=== PATIENT | female | born 1960 | race Caucasian/White ===

== ENCOUNTER → 2020-12-17 | Outpatient (CLI) | payer BC, OTHER ==
[~2020-12-17] MED LIST: CELEXA20 MG PO; OMEPRAZOLE40 MG PO; OXYBUTYNIN CHLOR5 MG PO; SINGULAIR10 MG PO; SKELAXIN800 MG PO; VITAMIN D5000 UNIT PO
[2020-12-17 13:19] LABS: HEMOGLOBIN 13.4 gm/dl (12.3-15.3); RED BLOOD COUNT 4.47 M/UL (4.00-5.10); WHITE BLOOD COUNT 7.7 K/UL (4.5-11.0)
[2020-12-17 19:36] LABS: BUN/CREATININE RATIO 22 (0-10)
== END ==
LOC: LAB 12:34
PROVIDERS: Internal Medicine
DX: E83.52 Hypercalcemia (principal); R73.01 Impaired fasting glucose; R53.83 Other fatigue; E55.9 Vitamin D deficiency, unspecified; K21.9 Gastro-esophageal reflux disease without esophagitis; Z51.81 Encounter for therapeutic drug level monitoring; Z79.899 Other long term (current) drug therapy
CPT/HCPCS: 36415; 80053; 80061; 82330; 82607; 82746; 83036; 83735; 83970; 84436; 84439; 84443; 85025

== ENCOUNTER → 2021-09-22 | Outpatient (CLI) | payer BC ==
[2021-09-22 12:41] LABS: HEMOGLOBIN 13.1 gm/dl (12.3-15.3); RED BLOOD COUNT 4.54 M/UL (4.00-5.10); WHITE BLOOD COUNT 6.6 K/UL (4.5-11.0)
[2021-09-22 13:13] LABS: BUN/CREATININE RATIO 10 (0-10)
== END ==
LOC: LAB 11:39
PROVIDERS: Internal Medicine
DX: R53.83 Other fatigue (principal); E78.5 Hyperlipidemia, unspecified; R73.03 Prediabetes; Z51.81 Encounter for therapeutic drug level monitoring; Z79.899 Other long term (current) drug therapy
CPT/HCPCS: 36415; 80053; 80061; 82330; 82607; 82746; 83036; 83970; 84439; 84443; 85025

== ENCOUNTER 2022-04-27 08:12 | Emergency (ER) | payer BC ==
[2022-04-27] MEDS ORDERED: ZANAFLEX4 MG PO (10:47)
== END 2022-04-27 11:15 | disposition home or self-care (01) ==
LOC: ER1 08:12
DX: S46.911A Strain of unspecified muscle, fascia and tendon at shoulder and upper arm level, right arm, initial encounter (principal); I10 Essential (primary) hypertension; E11.9 Type 2 diabetes mellitus without complications; E78.5 Hyperlipidemia, unspecified; J45.909 Unspecified asthma, uncomplicated; X58.XXXA Exposure to other specified factors, initial encounter
CPT/HCPCS: 72050; 73030; 99283